=== PATIENT | female | born 1940 | race Caucasian/White ===

== ENCOUNTER → 2016-04-04 | Outpatient (CLI) | payer MEDICARE, BC ==
[~2016-04-04] VITALS: Ht 170.2 cm; Wt 88.0 kg
[~2016-04-04] MED LIST: ADVIL200 MG PO; ASPIRIN 81M81 MG/TA2 PO; ATORVASTATIN; AVAPRO150 MG PO; BLOOD PRESSURE MED; CIPRO 500MG TA500 MG PO; CO Q-1050 MG PO; CQ 10 PO; DICLOXACILLIN500 MG PO; EXCEDRIN BACK &1 TAB PO; EXCEDRIN DUAL500 MG PO; FEMIRON20 MG PO; FISH OIL500 MG PO; LISINOPRIL30 MG PO; LOPID 600M600 MG/TAB PO; LOPID600 MG PO; MULTIPLE VITAMI1 CAP PO; OMEGA-3 1000 MG1 SGL PO; OMEGA-3 FISH1200 MG PO; OSTEO-BI-FLEX 21 TAB; OSTEO-BI-FLEX 21 TAB PO; PHENTERMINE15 MG PO; PRILOSEC 20MG20 MG PO; RESTORIL15 MG PO; SEPTRA DS 8001 TAB PO; TEMAZEPAM; ULTRACET TABL1 UDTAB PO; ULTRAM 50MG TAB50 MG PO; VITAMIN D1000 IU PO; VYTORIN; VYTORIN 10 MG-11 TAB PO; VYTORIN 10 MG-41 TAB PO; ZITHROMAX Z PA250 MG PO; ZOCOR 40MG40 MG PO; [UNRECOGNIZED DRUG - OTHER]; [UNRECOGNIZED DRUG - OTHER] PO
== END ==
LOC: LIGHT 08:39
DX: E88.81 Metabolic syndrome and other insulin resistance (principal); E78.4 Other hyperlipidemia; E66.09 Other obesity due to excess calories; Z68.30 Body mass index [BMI] 30.0-30.9, adult; M15.8 Other polyosteoarthritis

== ENCOUNTER → 2016-06-06 | Outpatient (CLI) | payer MEDICARE, BC ==
[~2016-06-06] VITALS: Ht 170.2 cm; Wt 90.5 kg
[2016-06-06 12:05] VITALS: BP 122/62; PULSE 88
== END ==
LOC: LIGHT 10:20
DX: E88.81 Metabolic syndrome and other insulin resistance (principal); E78.4 Other hyperlipidemia; M15.8 Other polyosteoarthritis; E66.8 Other obesity; Z68.31 Body mass index [BMI] 31.0-31.9, adult; Z96.653 Presence of artificial knee joint, bilateral; Z90.49 Acquired absence of other specified parts of digestive tract; Z90.710 Acquired absence of both cervix and uterus; Z90.721 Acquired absence of ovaries, unilateral; Z96.641 Presence of right artificial hip joint

== ENCOUNTER → 2016-07-04 | Outpatient (CLI) | payer MEDICARE, BC | LOC: ZCOL.LAB 16:27 | DX: Z02.89 Encounter for other administrative examinations (principal) ==

== ENCOUNTER → 2016-07-11 | Outpatient (CLI) | payer MEDICARE, BC ==
[~2016-07-11] VITALS: Ht 170.2 cm; Wt 89.6 kg
[2016-07-11 12:03] VITALS: BP 131/61; PULSE 82
== END ==
LOC: LIGHT 12:40
DX: E88.81 Metabolic syndrome and other insulin resistance (principal); E78.5 Hyperlipidemia, unspecified; E66.9 Obesity, unspecified; Z68.30 Body mass index [BMI] 30.0-30.9, adult; Z71.3 Dietary counseling and surveillance; M15.9 Polyosteoarthritis, unspecified

== ENCOUNTER → 2016-07-29 | Outpatient (CLI) | payer MEDICARE, BC | LOC: MC.RAD 14:28 | DX: Z12.31 Encounter for screening mammogram for malignant neoplasm of breast (principal) ==

== ENCOUNTER → 2016-08-15 | Outpatient (CLI) | payer MEDICARE, BC ==
[~2016-08-15] VITALS: Ht 170.2 cm; Wt 90.5 kg
[2016-08-15 15:54] VITALS: BP 132/57; PULSE 85
== END ==
LOC: LIGHT 12:54
DX: E88.81 Metabolic syndrome and other insulin resistance (principal); E78.5 Hyperlipidemia, unspecified; E66.9 Obesity, unspecified; Z68.31 Body mass index [BMI] 31.0-31.9, adult; Z71.3 Dietary counseling and surveillance; M15.9 Polyosteoarthritis, unspecified

== ENCOUNTER → 2016-09-12 | Outpatient (CLI) | payer MEDICARE, BC ==
[~2016-09-12] VITALS: Ht 170.2 cm; Wt 89.8 kg
[2016-09-12 15:28] VITALS: BP 112/57; PULSE 90
== END ==
LOC: LIGHT 15:25
DX: E88.81 Metabolic syndrome and other insulin resistance (principal); E78.5 Hyperlipidemia, unspecified; E66.9 Obesity, unspecified; Z68.31 Body mass index [BMI] 31.0-31.9, adult; Z71.3 Dietary counseling and surveillance; M15.9 Polyosteoarthritis, unspecified

== ENCOUNTER → 2016-11-07 | Outpatient (CLI) | payer MEDICARE, BC ==
[~2016-11-07] VITALS: Ht 170.2 cm; Wt 88.9 kg
[2016-11-07 11:56] VITALS: BP 122/66; PULSE 76
== END ==
LOC: LIGHT 11:43
DX: E88.81 Metabolic syndrome and other insulin resistance (principal); E78.5 Hyperlipidemia, unspecified; E66.9 Obesity, unspecified; Z71.3 Dietary counseling and surveillance

== ENCOUNTER → 2016-12-12 | Outpatient (CLI) | payer MEDICARE, BC ==
[~2016-12-12] VITALS: Ht 170.2 cm; Wt 88.5 kg
[2016-12-12 12:00] VITALS: BP 124/76; PULSE 84
== END ==
LOC: LIGHT 10:43
DX: E88.81 Metabolic syndrome and other insulin resistance (principal); E78.5 Hyperlipidemia, unspecified; E66.9 Obesity, unspecified; Z68.30 Body mass index [BMI] 30.0-30.9, adult; Z71.3 Dietary counseling and surveillance; M15.9 Polyosteoarthritis, unspecified

== ENCOUNTER → 2017-01-30 | Outpatient (CLI) | payer MEDICARE, BC ==
[~2017-01-30] VITALS: Ht 170.2 cm; Wt 89.1 kg
[~2017-01-30] MED LIST changes: +FASTIN30 MG PO
[2017-01-30 11:44] VITALS: BP 140/70; PULSE 92
== END ==
LOC: LIGHT 11:40
DX: E88.81 Metabolic syndrome and other insulin resistance (principal); E78.5 Hyperlipidemia, unspecified; E66.9 Obesity, unspecified; Z68.30 Body mass index [BMI] 30.0-30.9, adult; Z71.3 Dietary counseling and surveillance; M15.9 Polyosteoarthritis, unspecified

== ENCOUNTER → 2017-04-10 | Outpatient (CLI) | payer MEDICARE, BC ==
[~2017-04-10] VITALS: Ht 170.2 cm; Wt 88.5 kg
[2017-04-10 11:40] VITALS: BP 138/84; PULSE 76
== END ==
LOC: LIGHT 11:26
DX: E88.81 Metabolic syndrome and other insulin resistance (principal); E78.5 Hyperlipidemia, unspecified; E66.9 Obesity, unspecified; Z68.30 Body mass index [BMI] 30.0-30.9, adult; Z71.3 Dietary counseling and surveillance; M15.9 Polyosteoarthritis, unspecified
CPT/HCPCS: G0463

== ENCOUNTER → 2017-05-22 | Outpatient (CLI) | payer MEDICARE, BC ==
[~2017-05-22] VITALS: Ht 170.2 cm; Wt 88.9 kg
[2017-05-22 11:15] VITALS: BP 120/52; PULSE 76
== END ==
LOC: LIGHT 11:03
DX: E88.81 Metabolic syndrome and other insulin resistance (principal); E78.5 Hyperlipidemia, unspecified; E66.9 Obesity, unspecified; Z68.30 Body mass index [BMI] 30.0-30.9, adult; Z71.3 Dietary counseling and surveillance; M15.9 Polyosteoarthritis, unspecified
CPT/HCPCS: G0463

== ENCOUNTER → 2017-07-03 | Outpatient (CLI) | payer MEDICARE, BC | LOC: ZCOL.LAB 10:12 | DX: L02.612 Cutaneous abscess of left foot (principal) ==

== ENCOUNTER → 2017-07-17 | Outpatient (CLI) | payer MEDICARE, BC ==
[~2017-07-17] VITALS: Ht 170.2 cm; Wt 88.7 kg
[2017-07-17 10:49] VITALS: BP 128/60; PULSE 80
== END ==
LOC: LIGHT 10:43
DX: E88.81 Metabolic syndrome and other insulin resistance (principal); E78.5 Hyperlipidemia, unspecified; E66.9 Obesity, unspecified; Z68.30 Body mass index [BMI] 30.0-30.9, adult; Z71.3 Dietary counseling and surveillance; M15.9 Polyosteoarthritis, unspecified
CPT/HCPCS: G0463

== ENCOUNTER → 2017-08-14 | Outpatient (CLI) | payer MEDICARE, BC | LOC: MC.RAD 13:06 | DX: Z12.31 Encounter for screening mammogram for malignant neoplasm of breast (principal) ==

== ENCOUNTER → 2017-09-18 | Outpatient (CLI) | payer MEDICARE, BC ==
[~2017-09-18] VITALS: Ht 170.2 cm; Wt 87.5 kg
[2017-09-18 11:04] VITALS: BP 124/80; PULSE 80
== END ==
LOC: LIGHT 10:54
DX: E88.81 Metabolic syndrome and other insulin resistance (principal); E78.5 Hyperlipidemia, unspecified; M15.9 Polyosteoarthritis, unspecified; E66.9 Obesity, unspecified; Z68.30 Body mass index [BMI] 30.0-30.9, adult; Z71.3 Dietary counseling and surveillance
CPT/HCPCS: G0463

== ENCOUNTER → 2017-11-13 | Outpatient (CLI) | payer MEDICARE, BC ==
[~2017-11-13] VITALS: Ht 170.2 cm; Wt 86.9 kg
[2017-11-13 11:54] VITALS: BP 118/70; PULSE 80
== END ==
LOC: LIGHT 11:43
DX: E88.81 Metabolic syndrome and other insulin resistance (principal); E78.5 Hyperlipidemia, unspecified; M15.9 Polyosteoarthritis, unspecified; E66.9 Obesity, unspecified; Z68.30 Body mass index [BMI] 30.0-30.9, adult; Z71.3 Dietary counseling and surveillance
CPT/HCPCS: G0463

== ENCOUNTER → 2018-04-23 | Outpatient (CLI) | payer MEDICARE, BC ==
[~2018-04-23] VITALS: Ht 170.2 cm; Wt 89.8 kg
[2018-04-23 13:00] VITALS: BP 146/70; PULSE 76
== END ==
LOC: LIGHT 11:54
DX: E88.81 Metabolic syndrome and other insulin resistance (principal); E78.5 Hyperlipidemia, unspecified; M15.9 Polyosteoarthritis, unspecified; E66.9 Obesity, unspecified; Z71.3 Dietary counseling and surveillance

== ENCOUNTER → 2018-06-18 | Outpatient (CLI) | payer MEDICARE, BC ==
[~2018-06-18] VITALS: Ht 170.2 cm; Wt 90.9 kg
[2018-06-18 13:03] VITALS: BP 130/50; PULSE 88
== END ==
LOC: LIGHT 12:51
DX: E88.81 Metabolic syndrome and other insulin resistance (principal); E78.5 Hyperlipidemia, unspecified; M15.9 Polyosteoarthritis, unspecified; E66.9 Obesity, unspecified; Z68.31 Body mass index [BMI] 31.0-31.9, adult; Z71.3 Dietary counseling and surveillance
CPT/HCPCS: G0463

== ENCOUNTER → 2018-08-26 | Outpatient (CLI) | payer MEDICARE, BC | LOC: MC.RAD 14:05 | DX: Z12.31 Encounter for screening mammogram for malignant neoplasm of breast (principal) ==

== ENCOUNTER → 2018-09-03 | Outpatient (CLI) | payer MEDICARE, BC ==
[~2018-09-03] VITALS: Ht 167.6 cm; Wt 91.4 kg
[2018-09-03 15:31] VITALS: BP 136/86; PULSE 80
== END ==
LOC: LIGHT 14:49
DX: Z12.31 Encounter for screening mammogram for malignant neoplasm of breast (principal); E88.81 Metabolic syndrome and other insulin resistance; E78.5 Hyperlipidemia, unspecified; M15.9 Polyosteoarthritis, unspecified
CPT/HCPCS: G0463

== ENCOUNTER → 2018-11-19 | Outpatient (CLI) | payer MEDICARE, BC ==
[~2018-11-19] VITALS: Ht 167.6 cm; Wt 86.0 kg
[2018-11-19 11:03] VITALS: BP 130/60; PULSE 76
== END ==
LOC: LIGHT 10:56
DX: E88.81 Metabolic syndrome and other insulin resistance (principal); E78.5 Hyperlipidemia, unspecified; M15.9 Polyosteoarthritis, unspecified; E66.9 Obesity, unspecified; Z68.30 Body mass index [BMI] 30.0-30.9, adult; Z71.3 Dietary counseling and surveillance
CPT/HCPCS: G0463

== ENCOUNTER → 2018-12-17 | Outpatient (CLI) | payer MEDICARE, BC ==
[~2018-12-17] VITALS: Ht 167.6 cm; Wt 84.8 kg
[2018-12-17 11:04] VITALS: BP 138/70; PULSE 88
== END ==
LOC: LIGHT 11:02
DX: E88.81 Metabolic syndrome and other insulin resistance (principal); E78.5 Hyperlipidemia, unspecified; M15.9 Polyosteoarthritis, unspecified; E66.9 Obesity, unspecified; Z68.30 Body mass index [BMI] 30.0-30.9, adult; Z71.3 Dietary counseling and surveillance
CPT/HCPCS: G0463

== ENCOUNTER → 2019-03-11 | Outpatient (CLI) | payer MEDICARE, BC ==
[~2019-03-11] VITALS: Ht 167.6 cm; Wt 85.3 kg
[2019-03-11 11:14] VITALS: BP 140/70; PULSE 88
== END ==
LOC: LIGHT 11:12
DX: Z68.30 Body mass index [BMI] 30.0-30.9, adult (principal); E88.81 Metabolic syndrome and other insulin resistance; E78.5 Hyperlipidemia, unspecified
CPT/HCPCS: G0463

== ENCOUNTER → 2019-04-15 | Outpatient (CLI) | payer MEDICARE, BC ==
[~2019-04-15] VITALS: Ht 167.6 cm; Wt 85.5 kg
[2019-04-15 11:12] VITALS: BP 124/64; PULSE 80
== END ==
LOC: LIGHT 11:06
DX: Z68.30 Body mass index [BMI] 30.0-30.9, adult (principal); E88.81 Metabolic syndrome and other insulin resistance; E78.5 Hyperlipidemia, unspecified
CPT/HCPCS: G0463

== ENCOUNTER → 2019-08-31 | Outpatient (CLI) | payer MEDICARE, BC | LOC: MC.RAD 10:50 | DX: Z12.31 Encounter for screening mammogram for malignant neoplasm of breast (principal) ==

== ENCOUNTER → 2020-09-20 | Outpatient (CLI) | payer MEDICARE, BC | LOC: MC.RAD 11:40 | DX: Z12.31 Encounter for screening mammogram for malignant neoplasm of breast (principal) ==

== ENCOUNTER → 2021-10-22 | Outpatient (CLI) | payer MEDICARE, BC | LOC: MC.RAD 09:48 | DX: Z12.31 Encounter for screening mammogram for malignant neoplasm of breast (principal) ==

== ENCOUNTER → 2023-11-24 | Outpatient (CLI) | payer MEDICARE | LOC: MC.RAD 06:16 | DX: Z12.31 Encounter for screening mammogram for malignant neoplasm of breast (principal) ==